=== PATIENT | female | born 1995 | race Two or more races ===

== ENCOUNTER 2017-08-23 18:53 | Emergency (ER) | payer SELFPAY ==
[2017-08-23 19:02] VITALS: BP 119/69
--- NOTE | 2017-08-23 19:49 | ER Document Report ---
HPI - HPI Patient complains to provider of: skin abnormality Pain Level: 3 Context: Patient is a 22-year-old female that comes emergency department for chief complaint of a red tender area just below the left side of the genitals that has been intermittently present for 1 month. She states it has not drained, she denies any fever or chills. She denies nausea or vomiting. She denies history of the same. She denies any daily medications. LMP 2 weeks ago. Past Medical History - General Information source: Patient - Social History Smoking Status: Never Smoker Frequency of alcohol use: None Drug Abuse: None Lives with: Family Family History: Reviewed & Not Pertinent - Medical History Medical History: Negative Surgical Hx: Negative - Immunizations Immunizations up to date: Yes Hx Diphtheria, Pertussis, Tetanus Vaccination: Yes Vertical Provider Document - CONSTITUTIONAL General Appearance: WD/WN, No Apparent Distress - HEENT HEENT: Atraumatic, Normocephalic - NECK Neck: Normal Inspection - RESPIRATORY Respiratory: Breath Sounds Normal, No Respiratory Distress O2 Sat by Pulse Oximetry: 100 - CARDIOVASCULAR Cardiovascular: Regular Rate, Regular Rhythm - GI/ABDOMEN Gastrointestinal: Abdomen Soft, Abdomen Non-Tender - REPRODUCTIVE Female Genitalia: negative: Normal Inspection - There is a tender erythematous area just inferior to the outer labia on the left side, no induration or fluctuance, no Bartholin's cyst, no nearby adenopathy, no other abnormality noted - BACK Back: Normal Inspection - NEURO Level of Consciousness: Awake, Alert, Appropriate Course - Re-evaluation Re-evalutation: Probably a plugged gland with mild cellulitis around it, no induration or fluctuance, no Bartholin cyst abscess, no other abnormality. Patient could apply warm compresses but this has been intermittently occurring for the past month, therefore patient will be placed on antibiotics. Discussed recommendations, follow-up, return precautions. Patient states understanding and agreement. - Vital Signs Vital signs: Temp Pulse Resp BP Pulse Ox 98.0 F 86 14 119/69 100 08/23/17 19:01 08/23/17 19:01 08/23/17 19:01 08/23/17 19:01 08/23/17 19:01 Discharge - Discharge Clinical Impression: Skin infection Condition: Stable Disposition: HOME, SELF-CARE Additional Instructions: There is a localized skin infection, no abscess is seen at this time, no other abnormality at this time. I recommend applying warm compresses to the area, keeping area clean with soap and water, keep dry. Take the prescribed antibiotics as directed (consider [id number] probiotic source or food source of probiotic such as activity over to avoid diarrhea). Follow-up with primary care. Return to the emergency department for any concerning worsening symptoms including swelling of the area, spreading redness, fever, or any other concerning symptoms. Prescriptions: Doxycycline Hyclate 100 mg PO BID #14 capsule
== END 2017-08-23 20:18 | disposition home or self-care (01) ==
LOC: ER 18:53
DX: L08.9 Local infection of the skin and subcutaneous tissue, unspecified (principal)
CPT/HCPCS: 99283